=== PATIENT | female | born 1995 | race Caucasian/White ===

== ENCOUNTER 2018-03-04 10:07 | Day surgery (SDC) | payer OTHER ==
[2018-03-03 08:29] VITALS: BMI 33.7
[2018-03-04 11:20] VITALS: TEMP 98.7
[2018-03-04 11:50] VITALS: PULSE 68
[2018-03-04 12:07] VITALS: BP 107/62
== END 2018-03-04 12:15 | disposition home or self-care (01) ==
LOC: JASU-ENDO 10:07
PROVIDERS: ATTEND Internal Medicine Gastroenterology
PROC: 0DJD8ZZ Inspection of Lower Intestinal Tract, Via Natural or Artificial Opening Endoscopic (ICD-10-PCS; principal; 2018-03-04 09:45)
DX: Z12.11 Encounter for screening for malignant neoplasm of colon (principal); K92.1 Melena; K59.00 Constipation, unspecified; R10.9 Unspecified abdominal pain; K64.8 Other hemorrhoids
CPT/HCPCS: 84703